=== PATIENT | female | born 1955 | race Hispanic/Latino ===

== ENCOUNTER 2016-10-14 20:43 | Observation (INO) | payer OTHER ==
[~2016-10-14] VITALS: Ht 154.9 cm; Wt 59.4 kg
--- NOTE | 2016-10-14 20:53 | ED UPPER/LOWER EXTREMITY COMPL ---
History of Present Illness General Chief Complaint: Foot or Ankle Injury Stated Complaint: BIBA FOR L ANKLE INJURY Source: patient Exam Limitations: no limitations Vital Signs & Intake/Output Vital Signs & Intake/Output Vital Signs Date Time Temp Pulse Resp B/P B/P Pulse O2 O2 Flow FiO2 Mean Ox Delivery Rate 10/15 0236 98.6 79 20 140/84 95 10/15 0139 76 18 148/83 99 Room Air 10/15 0001 165/89 10/15 0000 97.5 80 18 165/89 98 Room Air 10/14 2240 97.2 85 18 144/76 99 Room Air 10/14 2131 Room Air 10/14 2054 97.4 83 18 171/86 98 Room Air ED Intake and Output 10/15 0000 10/14 1200 Intake Total Output Total 200 Balance -200 Output, Urine 200 Patient 131 lb Weight Weight Reported by Patient Measurement Method Allergies Coded Allergies: MDX - Amoxicillin (From AUGMENTIN) (RASH 06/30/12) MDX - Clavulanic Acid (From AUGMENTIN) (RASH 06/30/12) MDX - Lisinopril (LISINOPRIL) (UNKNOWN 06/30/12) MDX - PCN (penicillin) (PCN (PENICILLIN)) (RASH 06/30/12) Triage Nurses Notes Reviewed? yes Onset: Abrupt Duration: constant Timing: single episode today Severity: severe Severity Numbers: 10 HPI: Patient is a 61-year-old female with a past medical history of hypertension who presents emergency room in which patient was walking down her steps where she thought she was walking down her final step however she had 2 more steps left and subsequent, he fell forward and which she twisted her left ankle resulting cute onset of sharp stabbing severe localized left ankle pain. Patient denies any preceding episode lightheaded sensation or dizziness. Denies any head strike back pain neck pain hip pain or foot pain or knee pain. Patient is brought in by ambulance in which CARDBOARD SPLINT was placed (RAMIREZ BUSCH) Reconcile Medications Metoprolol Tartrate 50 MG TABLET 1 TAB PO BID HTN (Reported) (CECILIA CHRISTINE,AMY Renee) Past History Travel History Traveled to [place] past 21 day No Medical History Any Pertinent Medical History? see below for history Cardiovascular: hypertension Surgical History Surgical History: non-contributory Psychosocial History What is your primary language Kinyarwanda Family History Hx Contributory? No (RAMIREZ BUSCH) Review of Systems Review of Systems Constitutional: Reports: no symptoms. EENTM: Reports: no symptoms. Respiratory: Reports: no symptoms. Cardiovascular: Reports: no symptoms. Gastrointestinal/Abdominal: Reports: no symptoms. Genitourinary: Reports: no symptoms. Musculoskeletal: Reports: see HPI, joint pain, joint swelling. Skin: Reports: no symptoms. Neurological/Psychological: Reports: no symptoms. Hematologic/Endocrine: Reports: no symptoms. Immunological: Reports: no symptoms. All Other Systems: Reviewed and Negative (RAMIREZ BUSCH) Physical Exam Physical Exam General Appearance: mild distress Neurologic/Tendon: normal sensation, normal motor functions, normal tendon functions, responds to pain, no evidence tendon injury, no pulse deficit Skin: intact, normal color, warm/dry Comments: HEENT: Atraumatic, extraocular motion intact Neck: Supple, no lymphadenopathy Back: Nontender Respiratory: No respiratory distress Extremities: Left hip nontender normal inspection Left knee normal inspection nontender Left ankle noted gross deformity GENERALIZED point tenderness noted skin intact Left foot nontender pedal pulse +2 capillary refill less than 2 seconds Left lower extremity dermatomes intact Neuro: Alert and oriented x3 Psych: Mood affect normal, normal memory normal judgment. (RAMIREZ BUSCH) Progress Differential Diagnosis: arterial insufficiency, compartment syndrome, contusion, dislocation, DVT, fracture, gout, septic arthritis, sprain, tendon injury Plan of Care: Orders Procedure Date/time Status Nothing by Mouth 10/15 B Active CBC WITHOUT DIFFERENTIAL 10/15 0500 Active BASIC ELECTROLYTES PLUS BUN&CR 10/15 0500 Active Vital Signs 10/15 0242 Complete Teach/Educate 10/15 0242 Active Pain Treatment and Response 10/15 0242 Active Nutritional Intake, Monitor 10/15 0242 Active Isolation 10/15 0242 Active Intake & Output 10/15 0242 Complete Patient Care Conference 10/15 0242 Active Activity/Ambulation 10/15 0242 Complete Lab Add-on Test 10/15 UNK Active Pathway - chart 10/14 2346 Active Patient Data 10/14 2346 Active Code Status 10/14 2346 Active Saline Lock 10/[address] in observation 10/14 2334 Active Misc Message 10/14 2334 Active ED Holding Orders 10/14 2334 Active Vital Signs 10/14 2334 Complete Code Status 10/14 2334 Complete TROPONIN LEVEL 10/14 2306 Active PARTIAL THROMBOPLASTIN TIME 07/14 2247 Complete PROTHROMBIN TIME 10/14 2246 Complete COMPREHENSIVE METABOLIC PANEL 10/14 2246 Active CBC WITHOUT DIFFERENTIAL 10/14 2246 Complete EKG 10/14 2246 Active TYPE & SCREEN (NOT X-MATCH) 10/14 2246 Complete Durable Medical Equipment 10/14 2228 Active Admit to inpatient 10/14 UNK Active VTE Mechanical Prophylaxis 10/14 UNK Active Vital Signs 10/14 UNK Active Intake & Output 10/14 UNK Active Activity/Ambulation 10/14 UNK Active Current Medications Sig/Diana Start time Last Medication Dose Stop Time Status Admin Metoprolol Tartrate 50 MG BID 10/14 2347 AC 10/15 (Lopressor) 0001 Acetaminophen 1,000 MG Q6P PRN 10/14 234 AC (Ofirmev) N/A 1 UNIT (No Carrier) Dextrose/Sodium 1,000 ML .Q10H 10/14 2344 AC 10/15 Chloride 0322 (D5W-1/2 Normal Saline 1000ML) Morphine Sulfate 2 MG Q3P PRN 10/14 2345 AC 10/15 (Morphine) 0254 Ondansetron HCl 4 MG Q6P PRN 10/14 2345 AC (Zofran) Laboratory Tests 10/14/16 2306: Anion Gap 11, Estimated GFR > 60, BUN/Creatinine Ratio 20.0, Glucose 145 H, Calcium 9.2, Total Bilirubin 0.3, AST 21, ALT 32, Alkaline Phosphatase 120, Troponin I Pending, Total Protein 7.2, Albumin 4.4, Globulin 2.8, Albumin/ Globulin Ratio 1.6, PT 11.0, INR 1.05, APTT 32, CBC w Diff NO MAN DIFF REQ, RBC 4.85, MCV 92.3, MCH 30.6, RDW 13.1, MPV 8.5, Gran % 81.4 H, Lymphocytes % 12.5 L, Monocytes % 5.3, Eosinophils % 0.6, Basophils % 0.2, Absolute Granulocytes 10.8 H, Absolute Lymphocytes 1.6, Absolute Monocytes 0.7 H, Absolute Eosinophils 0.1, Absolute Basophils 0, PUBS MCHC 33.2 Patient on initial examination was neurovascularly intact however shows gross deformity and concerns of dislocation. IV was established immediately in which fentanyl 50 g was administered with minimal improvement of symptoms then 50 g IV dose of fentanyl was administered then one attempt of reduction was performed successfully and was post reduction neurovascular was intact. I then placed a WEBRIL THEN sugar tong and posterior lower leg splint using orthopedic GLASS AND ACEWRAP. PRE/POST NEUROVASCULARITY WAS INTACT. Patient then was administered another 50 g of fentanyl Patient tolerated well XRAY PENDING Discussed patient with orthopedic Chalo Rodrigues MD in which the temporary splint currently is in place and patient was resting comfortably at bedside. We discussed patient's disposition and plan in which patient was strongly advised to begin nonweightbearing status using crutches in which patient lives in a private residence with her family especially her son in which at this time patient felt comfortable, safe and stable to manage with the nonweightbearing status in the splint at home in which pain medications will be administered and patient will follow-up with orthopedics on Monday. Patient family members felt comfortable with disposition plan and had no questions. It was noted that using crutches patient was unable to tolerate crutches due to the fall which patient has noted pain to the right ankle and was unsafe for discharge Patient could not tolerate Chalo Rodrigues MD was aware of patient not being able to be safely discharged from the emergency room due to concerns of a right ankle sprain and patient is nonweightbearing on the left lower extremity due to recent fracture. X-ray was ordered to the right ankle Patient is nothing by mouth Patient will have surgical intervention performed by Chalo Rodrigues MD tomorrow first thing a.m. Discussed with surgical PA that Dr. RODRIGUES WILL ACCEPT patient under his service (CAREY CASTILLO,RAMIREZ) Diagnostic Imaging: Viewed by Me: Radiology Read. Initial ED EKG: PENDING Comments: PATIENT: ANTONIETA PERDOMO PRESENT AGE: 61 PATIENT ACCOUNT NO: [id number] : 54 LOCATION: [facility] ORDERING PHYSICIAN: RAMIREZ CASTILLO SERVICE DATE: 10/14/16 EXAM TYPE: RAD - XRY-ANKLE 3 OR MORE VIEWS L; [id number], LEFT EXAMINATION: XR TIBIA AND FIBULA, LEFT Left ankle CLINICAL INFORMATION: Dislocated ankle COMPARISON: None TECHNIQUE: AP and lateral views of the left tibia and fibula were obtained. 3 views of the left ankle FINDINGS: Tibia/fibula: There is a partially opaque fiberglass splint extending to the level of the knee which obscures detail. There is a slightly comminuted distal fibular fracture. There is a transversely oriented fracture of the medial malleolus at the level of the plafond. The distal fibular fracture has an oblique orientation extending to the junction with the lateral aspect of the talar dome Left ankle: Partially opaque fiberglass splint immobilizes the ankle with minimal plantar flexion. There is moderate dorsal displacement of the distal fibular fracture fragment with at least 2 small comminuted fragments. There is slight distraction and mild rotation of the medial malleolar fracture fragment. Plantar calcaneal spur There is apparent widening of the ventral aspect of the tibiotalar joint IMPRESSION: Splint immobilizes the displaced medial malleolar and distal fibular fracture. Persistent displacement. DICTATED BY: KARRI HILLIARD MD DATE/TIME DICTATED:10/14/162245 PATIENT: ANTONIETA PERDOMO PRESENT AGE: 61 PATIENT ACCOUNT NO: [id number] : 54 LOCATION: [facility] ORDERING PHYSICIAN: RAMIREZ CASTILLO SERVICE DATE: 10/14/16 EXAM TYPE: RAD - XRY-ANKLE 3 OR MORE VIEWS R EXAMINATION: XR ANKLE, RIGHT CLINICAL INFORMATION: Pain status post fall. COMPARISON: None TECHNIQUE: AP, lateral, and mortise views of the right ankle. FINDINGS: Bone mineral density is maintained without evidence of fracture or dislocation. No focal osseous lesions are seen. Joint space is maintained without productive or erosive changes. There is mild soft tissue prominence laterally. IMPRESSION: No fracture or dislocation is seen. DICTATED BY: ÁLVARO ESCAMILLA MD DATE/TIME DICTATED:10/14/162311 RUBBER VULCANIZING MACHINE OPERATOR:BARBARA (CAREY CASTILLO,RAMIREZ) Departure Departure Disposition: STILL A PATIENT Condition: Stable Clinical Impression Primary Impression: Fracture of medial malleolus of left tibia Secondary Impressions: Dislocation of ankle joint, Fall, Fracture of distal end of fibula, Right ankle sprain Referrals: CAROL CHRISTINE,CHALO LOPEZ MDHUTTIG Departure Forms: Customer Survey General Discharge Information Admission Note Spoke With: CHALO RODRIGUES MD Documentation of Exam: Documentation of any treatments & extenuating circumstances including Concerns Regarding Discharge (functional status, medication knowledge or non-compliance, living conditions, etc.) that warrant an admission rather than observation: Discussed admission with Dr. RODRIGUES who will accept patient under his service and was patient will require surgical intervention and was patient is unsafe to be discharged home patient also will require short-term rehabilitation after (CAREY CASTILLO,RAMIREZ) PA/HUB CUTTER APPRENTICE Co-Sign Statement Statement: ED Attending supervision documentation- [] I saw and evaluated the patient. I have also reviewed all the pertinent lab results and diagnostic results. I agree with the findings and the plan of care as documented in the PA's/HUB CUTTER APPRENTICE's documentation. [x] I have reviewed the ED Record and agree with the PA's/HUB CUTTER APPRENTICE's documentation. [] Additions or exceptions (if any) to the PAs/HUB CUTTER APPRENTICE's note and plan are summarized below: [] (CECILIA CHRISTINE,AMY Renee)
--- NOTE | 2016-10-14 22:53 | RADIOLOGY REPORT ---
EXAMINATION: XR TIBIA AND FIBULA, LEFT Left ankle CLINICAL INFORMATION: Dislocated ankle COMPARISON: None TECHNIQUE: AP and lateral views of the left tibia and fibula were obtained. 3 views of the left ankle FINDINGS: Tibia/fibula: There is a partially opaque fiberglass splint extending to the level of the knee which obscures detail. There is a slightly comminuted distal fibular fracture. There is a transversely oriented fracture of the medial malleolus at the level of the plafond. The distal fibular fracture has an oblique orientation extending to the junction with the lateral aspect of the talar dome Left ankle: Partially opaque fiberglass splint immobilizes the ankle with minimal plantar flexion. There is moderate dorsal displacement of the distal fibular fracture fragment with at least 2 small comminuted fragments. There is slight distraction and mild rotation of the medial malleolar fracture fragment. Plantar calcaneal spur There is apparent widening of the ventral aspect of the tibiotalar joint IMPRESSION: Splint immobilizes the displaced medial malleolar and distal fibular fracture. Persistent displacement.
--- NOTE | 2016-10-14 23:12 | History & Physical Pre-Op ---
General Information and HPI MD Statement: I have seen and personally examined ANTONIETA PERDOMO and documented this H&P. The patient is a 61 year old F who presented with a patient stated chief complaint of [LEFT ANKEL PAIN]. 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 She was walking down the stairs in her home while on her ipad, and tripped down the last 2 stairs. Denies palpitaitons, bhat, cp, sob, dizziness, loc, head injury at time of fall. Also c/o right ankle pain, noted when she stood from her fall and fully weight beared to right foot. No other complaints at this time- no n/v/cp/sob/f/c Allergies/Medications Allergies: Coded Allergies: MDX - Amoxicillin (From AUGMENTIN) (RASH 06/30/12) MDX - Clavulanic Acid (From AUGMENTIN) (RASH 06/30/12) MDX - Lisinopril (LISINOPRIL) (UNKNOWN 06/30/12) MDX - PCN (penicillin) (PCN (PENICILLIN)) (RASH 06/30/12) Past History Medical History Cardiovascular: hypertension Surgical History Pertinent Surgical History: cholecystectomy, left carpal tunnel, l tennis elbow, l thumb procedure Past Family/Social History Psychosocial History Smoking Status: Never Smoked ETOH Use: denies use Illicit Drug Use: denies illicit drug use 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 r ankle ttp, no edema, skin intact. +DP bl. Last 24 Hrs of Labs/Kenji: Laboratory Tests 10/14/16 2306: Anion Gap 11, Estimated GFR > 60, BUN/Creatinine Ratio 20.0, Glucose 145 H, Calcium 9.2, Total Bilirubin 0.3, AST 21, ALT 32, Alkaline Phosphatase 120, Total Protein 7.2, Albumin 4.4, Globulin 2.8, Albumin/Globulin Ratio 1.6, PT 11.0, INR 1.05, APTT 32, CBC w Diff NO MAN DIFF REQ, RBC 4.85, MCV 92.3, MCH 30.6, RDW 13.1, MPV 8.5, Gran % 81.4 H, Lymphocytes % 12.5 L, Monocytes % 5.3, Eosinophils % 0.6, Basophils % 0.2, Absolute Granulocytes 10.8 H, Absolute Lymphocytes 1.6, Absolute Monocytes 0.7 H, Absolute Eosinophils 0.1, Absolute Basophils 0, PUBS MCHC 33.2 Diagnostic Data Other Results SERVICE DATE: 10/14/16 EXAM TYPE: RAD - XRY-ANKLE 3 OR MORE VIEWS L; [id number], LEFT EXAMINATION: XR TIBIA AND FIBULA, LEFT Left ankle CLINICAL INFORMATION: Dislocated ankle COMPARISON: None TECHNIQUE: AP and lateral views of the left tibia and fibula were obtained. 3 views of the left ankle FINDINGS: Tibia/fibula: There is a partially opaque fiberglass splint extending to the level of the knee which obscures detail. There is a slightly comminuted distal fibular fracture. There is a transversely oriented fracture of the medial malleolus at the level of the plafond. The distal fibular fracture has an oblique orientation extending to the junction with the lateral aspect of the talar dome Left ankle: Partially opaque fiberglass splint immobilizes the ankle with minimal plantar flexion. There is moderate dorsal displacement of the distal fibular fracture fragment with at least 2 small comminuted fragments. There is slight distraction and mild rotation of the medial malleolar fracture fragment. Plantar calcaneal spur There is apparent widening of the ventral aspect of the tibiotalar joint IMPRESSION: Splint immobilizes the displaced medial malleolar and distal fibular fracture. Persistent displacement. Assessment/Plan Assessment/Plan: A: 61yoF sp mechanical fall w L bimalleolar fx, R ankle sprain, with pain and inability to ambulate. P: DW Dr. Rodrigues, will admit to his service and take to OR tomorrow am for ORIF. NPO p mn, IVF, prn pain meds, home meds. Full code. Pt agrees with plan. As Ranked By This Provider Problem List: 1. Fracture of medial malleolus of left tibia 2. Right ankle sprain 3. Fall
[2016-10-14 23:15] LABS: ABSOLUTE BASOPHIL COUNT 0 /CUMM (0.0-0.2); ABSOLUTE EOSINOPHIL COUNT 0.1 /CUMM (0.0-0.7); ABSOLUTE GRANULOCYTE CT 10.8 /CUMM (1.4-6.5); ABSOLUTE LYMPH COUNT 1.6 /CUMM (1.2-3.4); ABSOLUTE MONOCYTE COUNT 0.7 /CUMM (0.10-0.60); BASOPHIL % 0.2 % (0.0-2.0); EOSINOPHIL % 0.6 % (0-5); GRANULOCYTE % 81.4 % (42.2-75.2); HEMATOCRIT 44.8 % (37-47); MEAN CORPUSCULAR HGB 30.6 PG (27.0-31.0); MEAN CORPUSCULAR HGB CONC 33.2 G/DL (33.0-37.0); MEAN CORPUSCULAR VOLUME 92.3 FL (81.0-99.0); MEAN PLATELET VOLUME 8.5 FL (7.4-10.4); PLATELET COUNT 289 /CUMM (130-400); RBC DISTRIBUTION WIDTH 13.1 % (11.5-14.5); RED BLOOD CELL CT 4.85 /CUMM (4.20-5.40); WHITE BLOOD CELL COUNT 13.2 /CUMM (4.8-10.8)
--- NOTE | 2016-10-14 23:16 | RADIOLOGY REPORT ---
EXAMINATION: XR ANKLE, RIGHT CLINICAL INFORMATION: Pain status post fall. COMPARISON: None TECHNIQUE: AP, lateral, and mortise views of the right ankle. FINDINGS: Bone mineral density is maintained without evidence of fracture or dislocation. No focal osseous lesions are seen. Joint space is maintained without productive or erosive changes. There is mild soft tissue prominence laterally. IMPRESSION: No fracture or dislocation is seen.
[2016-10-14 23:27] LABS: PTT 32 SEC (25-37)
[2016-10-14] MEDS ORDERED: METOPROLOL TART50 M1 PO (23:49)
--- NOTE | 2016-10-15 | Admission Core Measures ---
Admission Lab Results I reviewed the following labs: Laboratory Tests 10/14 2306 Chemistry Sodium (137 - 145 mmol/L) 139 Potassium (3.5 - 5.1 mmol/L) 4.2 Chloride (98 - 107 mmol/L) 101 Carbon Dioxide (22 - 30 mmol/L) 27 Anion Gap (5 - 16) 11 BUN (7 - 17 mg/dL) 14 Creatinine (0.5 - 1.0 mg/dL) 0.7 Estimated GFR (>60 ml/min) > 60 BUN/Creatinine Ratio (7 - 25 %) 20.0 Glucose (65 - 99 mg/dL) 145 H Calcium (8.4 - 10.2 mg/dL) 9.2 Total Bilirubin (0.2 - 1.3 mg/dL) 0.3 AST (14 - 36 U/L) 21 ALT (9 - 52 U/L) 32 Alkaline Phosphatase (<127 U/L) 120 Total Protein (6.3 - 8.2 g/dL) 7.2 Albumin (3.5 - 5.0 g/dL) 4.4 Globulin (1.9 - 4.2 gm/dL) 2.8 Albumin/Globulin Ratio (1.1 - 2.2 %) 1.6 Coagulation PT (9.4 - 12.5 SEC) 11.0 INR (0.90 - 1.19) 1.05 APTT (25 - 37 SEC) 32 Hematology CBC w Diff NO MAN DIFF REQ WBC (4.8 - 10.8 /CUMM) 13.2 H RBC (4.20 - 5.40 /CUMM) 4.85 Hgb (12.0 - 16.0 G/DL) 14.9 Hct (37 - 47 %) 44.8 MCV (81.0 - 99.0 FL) 92.3 MCH (27.0 - 31.0 PG) 30.6 RDW (11.5 - 14.5 %) 13.1 Plt Count (130 - 400 /CUMM) 289 MPV (7.4 - 10.4 FL) 8.5 Gran % (42.2 - 75.2 %) 81.4 H Lymphocytes % (20.5 - 51.1 %) 12.5 L Monocytes % (1.7 - 9.3 %) 5.3 Eosinophils % (0 - 5 %) 0.6 Basophils % (0.0 - 2.0 %) 0.2 Absolute Granulocytes (1.4 - 6.5 /CUMM) 10.8 H Absolute Lymphocytes (1.2 - 3.4 /CUMM) 1.6 Absolute Monocytes (0.10 - 0.60 /CUMM) 0.7 H Absolute Eosinophils (0.0 - 0.7 /CUMM) 0.1 Absolute Basophils (0.0 - 0.2 /CUMM) 0 PUBS MCHC (33.0 - 37.0 G/DL) 33.2 Admission Meds I reviewed the following Meds: Current Medications Sig/Diana Start time Last Medication Dose Stop Time Status Admin Acetaminophen 1,000 MG Q6P PRN 10/14 2345 UNVr (Ofirmev) N/A 1 UNIT (No Carrier) Dextrose/Sodium 1,000 ML .Q10H 10/14 2345 AC Chloride (D5W-1/2 Normal Saline 1000ML) Metoprolol Tartrate 50 MG BID 10/14 2346 UNVr (Lopressor) Morphine Sulfate 2 MG Q3 PRN 10/14 2344 UNVr (Morphine) Ondansetron HCl 4 MG Q6P PRN 10/14 2345 UNVr (Zofran) Acute Coronary Syndrome Inclusion Criteria ACS Diagnosis No Inpatient Core Measures LDL Reminder: If No, please order W/I first 24hr of stay Congestive Heart Failure Inclusion Criteria CHF Diagnosis No Cerebrovascular accident Inclusion Criteria CVA/TIA Diagnosis No Inpatient Core Measures Bedside Swallow Eval Reminder: If BSE failed, place ST order Antithrombotic Reminder: Order Antithrombotic Medication by end of day 2 Antithrombotic Reminder: Document Reason Antithrombotic Not ordered by end of day 2 AFIB/Flutter Reminder: If Present, add to problem list AFIB/Flutter Reminder: Order Anticoag Medication for pts with AFIB/Flutter Atherosclerosis Reminder: If Present, add to problem list LDL Reminder: If No, please order W/I first 24hr of stay PT Order Reminder: If No, please order Venous thromboembolism Inpatient Core Measures VTE Risk Factors: Surgery [facility] V[facility] prophylaxis d/t No contraindications No VTE Pharm Prophylaxis d/t No contraindications Inclusion Criteria - Per Current guidelines, there needs to be overlap - treatment for the first 5 days of Warfarin therapy. - Parenteral Anticoagulation (IV or SC) needs to be - given along with Warfarin therapy. VTE Diagnosis No VTE Type NONE VTE Confirmed by (Test) NONE Problem List As ranked by this Provider includes Assessment & Plan 1. Fracture of medial malleolus of left tibia 2. Right ankle sprain 3. Fall HOME MEDS Home Med List Metoprolol Tartrate 50 MG TABLET 1 TAB PO BID HTN (Reported)
[2016-10-15 02:36] VITALS: BP 140/84
--- NOTE | 2016-10-15 03:00 | Cons- Medical ---
BRAXTON CHRISTINE,AISLINN 10/15/16 0246: General Information and HPI Consulting Request Date of Consult: 10/15/16 Requested By: CAROL CHRISTINE,CHALO Dodd Reason for Consult: Pre-op clearance Source of Information: patient, family Exam Limitations: no limitations History of Present Illness: This is a 61-year-old female w/ past medical history significant for hypertension, headache-currently being worked up for trigeminal neuralgia who comes in for chief complaint of ankle pain. Patient is status post mechanical fall, she was walking down the stairs, using her ipad, in her home and tripped on the last 2 stairs. Denies any head trauma, shortness of breath, dizziness, chest pain, palpitations, or loss of consciousness. Patient endorses both right and left ankle pain but she states the left is greater than the right. Denies any smoking or drinking or IV drug abuse. Surgical history significant for left-sided carpal tunnel surgery left side joint replacement of the thumb, tennis elbow of left arm and cholecystectomy. 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 Only medication is metoprolol 25 mg by mouth twice a day. Allergies/Medications Allergies: Coded Allergies: MDX - Amoxicillin (From AUGMENTIN) (RASH 06/30/12) MDX - Clavulanic Acid (From AUGMENTIN) (RASH 06/30/12) MDX - Lisinopril (LISINOPRIL) (UNKNOWN 06/30/12) MDX - PCN (penicillin) (PCN (PENICILLIN)) (RASH 06/30/12) Home Med List: Metoprolol Tartrate 50 MG TABLET 1 TAB PO BID HTN (Reported) Current Medications: Current Medications Sig/Diana Start time Last Medication Dose Route Stop Time Status Admin Acetaminophen 1,000 MG Q6P PRN 10/14 2345 AC N/A 1 UNIT IV Dextrose/Sodium 1,000 ML .Q10H 10/14 2345 AC 10/15 Chloride IV 0001 Fentanyl Citrate 0 .STK-MED ONE 10/14 2149 DC .ROUTE Fentanyl Citrate 100 MCG ONCE ONE 10/14 2144 DC 10/14 IV 10/14 Fentanyl Citrate 0 .STK-MED ONE 10/14 2129 DC .ROUTE Fentanyl Citrate 0 .STK-MED ONE 10/14 2121 DC .ROUTE Fentanyl Citrate 50 MCG ONCE ONE 10/14 2114 DC 10/14 IV 10/14 Metoprolol Tartrate 0 .STK-MED ONE 10/15 0002 DC PO Metoprolol Tartrate 0 .STK-MED ONE 10/15 0001 DC PO Metoprolol Tartrate 50 MG BID 10/14 2347 AC 10/15 PO 0001 Morphine Sulfate 2 MG Q3P PRN 10/14 2345 AC IV Ondansetron HCl 4 MG Q6P PRN 10/14 2345 AC IV Oxycodone/ 0 .STK-MED ONE 10/14 2234 DC Acetaminophen PO Oxycodone/ 1 TAB ONCE ONE 10/14 2229 DC 10/14 Acetaminophen PO 10/14 2230 2240 Review of Systems Review of Systems Constitutional: Denies: chills, diaphoresis, fever, malaise, weakness. EENTM: Denies: blurred vision. Cardiovascular: Denies: chest pain, palpitations. Respiratory: Denies: cough, short of breath. GI: Denies: constipation, diarrhea, nausea, vomiting. Genitourinary: Denies: hematuria, pain, urgency. Musculoskeletal: Reports: joint pain, joint swelling, muscle pain, muscle stiffness. Skin: Reports: no symptoms. Past History Travel History Traveled to [place] past 21 day No Medical History Cardiovascular: hypertension Surgical History Surgical History: cholecystectomy, left carpal tunnel, l tennis elbow, l thumb procedure Psychosocial History Smoking Status: Never Smoked ETOH Use: denies use Illicit Drug Use: denies illicit drug use Functional Ability ADLs Independent: dressing, eating, toileting, bathing. Ambulation: independent IADLs Independent: shopping, housework, finances, food prep, telephone, transportation , medication admin. 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) Exam & Diagnostic Data Last 24 Hrs of Vital Signs/I&O Vital Signs Date Time Temp Pulse Resp B/P B/P Pulse O2 O2 Flow FiO2 Mean Ox Delivery Rate 10/15 0236 98.6 79 20 140/84 95 10/15 0139 76 18 148/83 99 Room Air 10/15 0001 165/89 10/15 0000 97.5 80 18 165/89 98 Room Air 10/14 2240 97.2 85 18 144/76 99 Room Air 10/14 2130 Room Air 10/14 2053 97.4 83 18 171/86 98 Room Air Intake & Output 10/15 0800 10/15 0000 10/14 1600 Intake Total Output Total 200 Balance -200 Output, Urine 200 Patient 59.421 kg 59.421 kg Weight Weight Reported by Patient Measurement Method Physical Exam General Appearance: well developed/nourished, no apparent distress, alert, awake Head: atraumatic, normal appearance Eyes: Bilateral: normal appearance, PERRL, EOMI. Ears, Nose, Throat: normal pharynx, normal ENT inspection Neck: normal inspection, supple Respiratory: normal breath sounds Cardiovascular: regular rate/rhythm Gastrointestinal: soft, non-tender Extremities: injury present, limited range of motion, swelling Cranial Nerves: normal hearing, normal speech, PERRL Last 24 Hrs of Labs/Kenji: Laboratory Tests 10/14/16 2306: Anion Gap 11, Estimated GFR > 60, BUN/Creatinine Ratio 20.0, Glucose 145 H, Calcium 9.2, Total Bilirubin 0.3, AST 21, ALT 32, Alkaline Phosphatase 120, Total Protein 7.2, Albumin 4.4, Globulin 2.8, Albumin/Globulin Ratio 1.6, PT 11.0, INR 1.05, APTT 32, CBC w Diff NO MAN DIFF REQ, RBC 4.85, MCV 92.3, MCH 30.6, RDW 13.1, MPV 8.5, Gran % 81.4 H, Lymphocytes % 12.5 L, Monocytes % 5.3, Eosinophils % 0.6, Basophils % 0.2, Absolute Granulocytes 10.8 H, Absolute Lymphocytes 1.6, Absolute Monocytes 0.7 H, Absolute Eosinophils 0.1, Absolute Basophils 0, PUBS MCHC 33.2 Assessment/Plan Assessment/Plan This is a 59-year-old female with past medical history significant for hypertension and headaches who comes in for chief complaint of left lower extremity pain status post mechanical fall after accidental tripping and falling down last 2 stairs at home. ED workup shows bilateral fracture and a right ankle sprain. Plan is for patient to go to OR in a.m. for ORIF. Medicine team has been consulted for preoperative clearance. In ED patient underwent successful reduction of the lower extremity and post reduction was neurovascularly intact. Subsequently she was placed in a leg splint using orthopedic glass and Roland wrap. Initially, plan was to discharge patient on crutches and follow-up with ortho surgeon on Monday. However given her fall and subsequent weakness on the right ankle,pt was unable to tolerate crutches and was unsafe discharge for home ED workup shows:Vitals 98.6, 79, 20, 140/84, 95.CBC shows white count 13.2, hemoglobin ABC shows white count 13.2, hemoglobin 14.9, hematocrit 44.8, platelet 289. INR 1.05 L. Ankle Xray Impression: Splint immobilizes the displaced medial malleolar and distal fibular fracture. Persistent displacement. Plan Preoperative clearance:She is medically stable, her vital signs are normal and her EKG shows no acute changes. The revised cardiac risk index for preoperative risk for this patient is 0.6 placing her at class I risk and 0.4% risk of major cardiac event. Patient is at an acceptable risk to undergo surgery. Her EKG looks good as she is in NSR without any acute ST, Twv abnormalities noted. * Follow up add on troponin Leukocytosis: WBC at 13.2; most likely reactive. * Con't monitor HTN: Pt has BP 140/84 and takes Metoprolol 25mg po BID * Con't Metoprolol with holding paramenters for hypotension FC CHEM DVT PPX NPO Problem List: 1. Fracture of medial malleolus of left tibia 2. Dislocation of ankle joint 3. Fall Consult Acknowledgment - Thank you for your consult request. CHERELLE CHRISTINE, [facility] 10/15/16 030: Assessment/Plan Consult Acknowledgment - Thank you for your consult request. Attending MD Review Statement Attending Statement Attending MD Statement: examined this patient, discuss w/resident/PA/TUNNELING MACHINE OPERATOR, agreed w/resident/PA/TUNNELING MACHINE OPERATOR, discussed with family Attending Assessment/Plan: 61 yo F with h/o HTN, migraine headaches (currently being evaluated for trigeminal neuralgia), is admitted for repair (ORIF) of left bimalleolar fracture s/p mechanical fall under Dr. Rodrigues's service. She has also sustained a right ankle sprain. Medicine is being consulted for pre-operative clearance and management of hypertension. She denies chest pain, dyspnea, palpitations or lightheadedness. Patient denies h/o MA, CHF, stroke or diabetes. She reports undergoing a treadmill stress test (20 yrs ago) and that was negative. She is not sure why it was done though. VSS. Labs s/o mild leukocytosis (WBC 13.2), glucose (145), troponin pending. EKG : Sinus rhythm, non specific changes (no old EKG to compare). Per RCRI, she has no risk factors, placing her at low risk (~ 0.4 - 0.5%) for perioperative cardiac event. She can be taken up for surgery in AM. We wyatt continue with metoprolol for hypertension. Check HbA1c, given elevated random glucose. Her leukocytosis is likely reactive, will recheck CBC in AM. Please provide incentive spirometry post operatively. Pain management and PT eval per primary team. Thank you for the consult. We will continue to follow.
[2016-10-15 05:20] LABS: ABSOLUTE BASOPHIL COUNT 0 /CUMM (0.0-0.2); ABSOLUTE EOSINOPHIL COUNT 0.1 /CUMM (0.0-0.7); ABSOLUTE GRANULOCYTE CT 8.6 /CUMM (1.4-6.5); ABSOLUTE LYMPH COUNT 1.8 /CUMM (1.2-3.4); ABSOLUTE MONOCYTE COUNT 0.8 /CUMM (0.10-0.60); BASOPHIL % 0.3 % (0.0-2.0); EOSINOPHIL % 0.6 % (0-5); GRANULOCYTE % 75.6 % (42.2-75.2); HEMATOCRIT 42.8 % (37-47); MEAN CORPUSCULAR HGB 30.7 PG (27.0-31.0); MEAN CORPUSCULAR HGB CONC 33.1 G/DL (33.0-37.0); MEAN CORPUSCULAR VOLUME 92.7 FL (81.0-99.0); MEAN PLATELET VOLUME 8.7 FL (7.4-10.4); PLATELET COUNT 271 /CUMM (130-400); RBC DISTRIBUTION WIDTH 13.2 % (11.5-14.5); RED BLOOD CELL CT 4.62 /CUMM (4.20-5.40); WHITE BLOOD CELL COUNT 11.4 /CUMM (4.8-10.8)
[2016-10-15 06:13] VITALS: BP 138/80
--- NOTE | 2016-10-15 12:56 | RADIOLOGY REPORT ---
EXAMINATION: FL INTRAOPERATIVE GUIDANCE ANKLE, LEFT CLINICAL INFORMATION: Left ankle pinning. COMPARISON: 10/14/2016 TECHNIQUE: Fluoroscopic time was utilized in the OR for Dr. Rodrigues. Fluoroscopic images were obtained in AP, oblique and lateral projections. FINDINGS: Initial images demonstrate a trimalleolar fracture with posterior subluxation of the talus. Subsequent images demonstrate placement of a buttress plate and screws at the distal fibula followed by progressive placement of 2 partially threaded screws through the medial malleolus. Alignment is improved from prior. Detail is limited on the views obtained. FLUOROSCOPY TIME: 78.5 seconds of fluoroscopic time was utilized for the entirety of this examination. NUMBER OF IMAGES: 79 IMPRESSION: Intraoperative guidance as described above. Recommend correlation with the clinical procedure. Followup radiographs postoperatively recommended.
--- NOTE | 2016-10-15 13:01 | Operative Report ---
Operative/Inv Procedure Report Surgery Date: 10/15/16
[2016-10-15 13:20] VITALS: BP 110/70
--- NOTE | 2016-10-15 18:58 | PN- Orthopedic ---
Subjective Subjective: Postop check Pt has no major complaints. Tolerating some po. Voided. No BM. Pain is reasonably controlled. R ankle pain (sprained side) with reported improvement. Objective Vital Signs and I&Os Vital Signs Date Time Temp Pulse Resp B/P B/P Pulse O2 O2 Flow FiO2 Mean Ox Delivery Rate 10/16 0639 98.7 80 20 124/80 97 10/15 2253 86 120/60 10/15 2205 98.9 110 18 120/60 93 Room Air 10/15 1320 98.6 92 20 110/70 94 Room Air Intake & Output 10/16 0800 10/16 0000 10/15 1600 10/15 0800 10/15 0000 10/14 1600 Intake Total 800 400 200 500 Output Total 1200 4349 853 4256 200 Balance -400 -1400 -550 -550 -200 Intake, IV 800 100 500 Intake, Oral 400 100 0 Number 0 0 Bowel Movements Output, Urine 1200 2741 689 4915 200 Patient 131 lb 131 lb Weight Weight Reported by Patient Measurement Method Physical Exam: Gen: Pt is awake and alert. NAD. Cardiac: regular Pulm: CTA bilaterally Ext: LLE dressing/splint clean and intact. Toes are warm. Sensation is intact. Good capillary refill. RLE swelling almost completely resolved. Strength of DF, PF, Internal/external rotation are 4/5. Mild tenderness on the lateral malleolus and minor pain with eversion. Assessment/Plan Assessment/Plan Pt is a 61 yo F who is now POD #0 s/p ORIF of L ankle fracture, also sustained R ankle sprain at the time of the injury. She was admitted due to safety concerns being unable to bear weight on either foot upon admission. Plan: -Advance diet as tolerated. IVF overnight. Heplock when tolerating po. -Pain control with percocet and valium for spasms. -24 hours of prophylactic antibiotics. -Plan for PT consult in AM for dc recommendations. Anticipate home since R ankle symptoms have improved somewhat. Air cast available in pt's room to assist with immobilization. -Leave surgical dressing in place on L side. -SC heparin can start in AM. -B emeka resumed. Core Measures/Miscellaneous Venous Thromboembolism VTE Risk Factors: Acute medical illness, Age > 40, Surgery, Trauma major or lower ext VTE Contraindications: No Contraindications VTE Diagnosis: No VTE Type: NONE VTE Confirmed by (Test): NONE Beta Emeka Is Beta Emeka a Home Med? Yes If Yes, Was This Ordered Today? Yes Antibiotics Is Patient on Antibiotics? Yes If Yes: prophylaxis
--- NOTE | 2016-10-15 19:38 | PN- Att Addend ---
Attending Addendum Attending Brief Note Patient seen and examined. Plan of care discussed with the medical team and the patient. Available lab work and radiology test reports were reviewed. Patient is status post surgery as morning. She is currently awake alert and pain is well controlled. Denies any trouble with breathing and she does not appear to be in any distress. Vital Signs Date Time Temp Pulse Resp B/P B/P Pulse O2 O2 Flow FiO2 Mean Ox Delivery Rate 10/15 1320 98.6 92 20 110/70 94 Room Air 10/15 0613 98.2 77 20 138/80 95 10/15 0236 98.6 79 20 140/84 95 10/15 0139 76 18 148/83 99 Room Air 10/15 0001 165/89 10/15 0000 97.5 80 18 165/89 98 Room Air 10/14 2240 97.2 85 18 144/76 99 Room Air 10/14 2131 Room Air 10/14 2054 97.4 83 18 171/86 98 Room Air Intake & Output 10/15 1600 10/15 0800 10/15 0000 Intake Total 200 500 Output Total 750 1050 200 Balance -550 -550 -200 Intake, IV 100 500 Intake, Oral 100 0 Number 0 0 Bowel Movements Output, Urine 750 1050 200 Patient 131 lb 131 lb Weight Weight Reported by Patient Measurement Method Exam: General: Patient awake alert oriented without any distress CVS: S1 plus S2 without any murmur or gallops Chest: Few scattered crepitation without any wheeze. There is no respiratory distress. Abdomen: Soft nontender, bowel sound present, no guarding or rebound INBOUND TELEMARKETER: Awake alert oriented without any focal neuro deficit and follows command appropriately Extremities: No edema; no clubbing or cyanosis noted; left foot is covered with a heavy dressing Laboratory Tests 10/15 10/14 0445 2306 Chemistry Sodium (137 - 145 mmol/L) 138 139 Potassium (3.5 - 5.1 mmol/L) 4.3 4.2 Chloride (98 - 107 mmol/L) 102 101 Carbon Dioxide (22 - 30 mmol/L) 28 27 Anion Gap (5 - 16) 9 11 BUN (7 - 17 mg/dL) 11 14 Creatinine (0.5 - 1.0 mg/dL) 0.7 0.7 Estimated GFR (>60 ml/min) > 60 > 60 BUN/Creatinine Ratio (7 - 25 %) 15.7 20.0 Glucose (65 - 99 mg/dL) 145 H Hemoglobin A1c (4.2 - 5.8 %) Pending Calcium (8.4 - 10.2 mg/dL) 9.2 Total Bilirubin (0.2 - 1.3 mg/dL) 0.3 AST (14 - 36 U/L) 21 ALT (9 - 52 U/L) 32 Alkaline Phosphatase (<127 U/L) 120 Troponin I (< 0.11 ng/ml) 0.02 Total Protein (6.3 - 8.2 g/dL) 7.2 Albumin (3.5 - 5.0 g/dL) 4.4 Globulin (1.9 - 4.2 gm/dL) 2.8 Albumin/Globulin Ratio (1.1 - 2.2 %) 1.6 Coagulation PT (9.4 - 12.5 SEC) 11.0 INR (0.90 - 1.19) 1.05 APTT (25 - 37 SEC) 32 Hematology CBC w Diff NO MAN DIFF REQ NO MAN DIFF REQ WBC (4.8 - 10.8 /CUMM) 11.4 H 13.2 H RBC (4.20 - 5.40 /CUMM) 4.62 4.85 Hgb (12.0 - 16.0 G/DL) 14.2 14.9 Hct (37 - 47 %) 42.8 44.8 MCV (81.0 - 99.0 FL) 92.7 92.3 MCH (27.0 - 31.0 PG) 30.7 30.6 RDW (11.5 - 14.5 %) 13.2 13.1 Plt Count (130 - 400 /CUMM) 271 289 MPV (7.4 - 10.4 FL) 8.7 8.5 Gran % (42.2 - 75.2 %) 75.6 H 81.4 H Lymphocytes % (20.5 - 51.1 %) 16.1 L 12.5 L Monocytes % (1.7 - 9.3 %) 7.4 5.3 Eosinophils % (0 - 5 %) 0.6 0.6 Basophils % (0.0 - 2.0 %) 0.3 0.2 Absolute Granulocytes (1.4 - 6.5 /CUMM) 8.6 H 10.8 H Absolute Lymphocytes (1.2 - 3.4 /CUMM) 1.8 1.6 Absolute Monocytes (0.10 - 0.60 /CUMM) 0.8 H 0.7 H Absolute Eosinophils (0.0 - 0.7 /CUMM) 0.1 0.1 Absolute Basophils (0.0 - 0.2 /CUMM) 0 0 PUBS MCHC (33.0 - 37.0 G/DL) 33.1 33.2 Left tibia-fibula x-rays and left ankle x-rays Splint immobilizes the displaced medial malleolar and distal fibular fracture. Persistent displacement. Assessment * Left bimalleolar fracture status post ORIF * History of chronic migraines * History of hypertension currently well controlled * Elevated WBC count of unclear etiology Plan * Continue current dose of metoprolol * Continue current pain medications * DVT prophylaxis
[2016-10-15 22:05] VITALS: BP 120/60
[2016-10-16 06:39] VITALS: BP 124/80
--- NOTE | 2016-10-16 07:50 | PN- Orthopedic ---
Subjective Subjective: POD #1 s/p L ankle ORIF. Pt is doing well today. Pain is controlled. She is tolerating a regular diet and voiding in the bed louise without difficulty. Continues to report improvement in R ankle pain as well, almost completely resolved while resting and not weight bearing. No BM as of yet. Otherwise denies BURNS, dizziness, CP, shortness of breath. Objective Vital Signs and I&Os Vital Signs Date Time Temp Pulse Resp B/P B/P Pulse O2 O2 Flow FiO2 Mean Ox Delivery Rate 10/16 0639 98.7 80 20 124/80 97 / 2253 86 120/60 10/15 2205 98.9 110 18 120/60 93 Room Air 10/15 1320 98.6 92 20 110/70 94 Room Air Intake & Output 10/16 0800 10/16 0000 10/15 1600 10/15 0800 10/15 0000 10/14 1600 Intake Total 800 400 200 500 Output Total 1200 3946 699 5547 200 Balance -400 -1400 -550 -550 -200 Intake, IV 800 100 500 Intake, Oral 400 100 0 Number 0 0 Bowel Movements Output, Urine 1200 2812 381 2171 200 Patient 131 lb 131 lb Weight Weight Reported by Patient Measurement Method Physical Exam: Gen: Pt is awake and alert. NAD. Cardiac: regular Pulm: CTA bilaterally Ext: LLE dressing/splint clean and intact. Toes are cool, but ice pack is in place currently. Sensation is intact. Good capillary refill. RLE swelling resolved. Strength of DF, PF, Internal/external rotation are 4/5. No tenderness appreciated of R ankle this morning. Assessment/Plan Assessment/Plan Pt is a 61 yo F who is now POD #1 s/p ORIF of L ankle fracture, also sustained R ankle sprain at the time of the injury. She was admitted due to safety concerns being unable to bear weight on either foot upon admission. Plan: -Continue regular diet. Heplock IVF. -Pain control with percocet and valium for spasms. -24 hours of prophylactic antibiotics complete. -Plan for PT consult this AM for dc recommendations. Anticipate home since R ankle symptoms have resolved at rest. Air cast available in pt's room to assist with avoidance of rotation. -Leave surgical dressing in place on L side. -SC heparin can start now. -B emeka resumed. -F/u h/h. Core Measures/Miscellaneous Venous Thromboembolism VTE Risk Factors: Acute medical illness, Age > 40, Surgery, Trauma major or lower ext VTE Contraindications: No Contraindications VTE Diagnosis: No VTE Type: NONE VTE Confirmed by (Test): NONE Beta Emeka Is Beta Emeka a Home Med? Yes If Yes, Was This Ordered Today? Yes Antibiotics Is Patient on Antibiotics? No
[2016-10-16] MEDS ORDERED: COLACE100 M1 PO (07:51)
[2016-10-16] MEDS ORDERED: PERCOCET 5-3251 EACH PO (07:51)
--- NOTE | 2016-10-16 07:58 | Patient Discharge Instructions ---
Discharge Instructions General Discharge Information You were seen/treated for: Left ankle fracture, right ankle sprain You had these procedures: Left ankle ORIF on 10/15/2016 Watch for these problems: Fever greater than 101, drainage through the dressing, numbness or tingling of the lower extremities, chest pain, difficulty breathing. Call Surgeon to remove: SPLINT AND DRESSINGS Do not soak the wound: Yes Daily wet to dry dressings: No No bath, but you may shower: No Other wound care: Keep dressing clean and dry. Leave dressing in place. Sponge bath preferred. If shower as desired, please use a shower bag. Use caution on slippery surfaces. Diet Continue normal diet: Yes Activity Full Activity/No Limits: No Activity Self Limited: Yes Pounds, do NOT lift more than: 5 Activity Limited to: No weight bearing (NWB LEFT, WBAT RIGHT) Other activity limits: No weightbearing on the left side. You may weight-bear as tolerated on the right side. Recommend wearing Aircast for comfort to avoid rotational stress. You should use a rolling walker for ambulation and a crutch for stairs as instructed by PT. Acute Coronary Syndrome Inclusion Criteria At DC or during hospital stay patient has or had the following: ACS DIAGNOSIS No Discharge Core Measures Meds if any: Prescribed or Continued at Discharge Meds if any: NOT Prescribed or Continued at Discharge Congestive Heart Failure Inclusion Criteria At DC or during hospital stay patient has or had the following: CHF DIAGNOSIS No Discharge Core Measures Meds if any: Prescribed or Continued at Discharge Meds if any: NOT Prescribed or Continued at Discharge Cerebrovascular accident Inclusion Criteria At DC or during hospital stay patient has or had the following: CVA/TIA Diagnosis No Discharge Core Measures Meds if any: Prescribed or Continued at Discharge Meds if any: NOT Prescribed or Continued at Discharge Venous thromboembolism Inclusion Criteria VTE Diagnosis No VTE Type NONE VTE Confirmed by (Test) NONE Discharge Core Measures - Per Current guidelines, there needs to be overlap - treatment for the first 5 days of Warfarin therapy. - If discharged on Warfarin prior to 5 days of - overlap therapy, the patient will need to be - assessed for post discharge needs including - *Post discharge parental anticoagulation - *Warfarin and/or parental anticoagulation education - *Follow up date to check INR post discharge At least 5 days overlap therapy as Inpatient No Meds if any: Prescribed or Continued at Discharge Note: Overlap Therapy is Warfarin and Anticoagulant Meds if any: NOT Prescribed or Continued at Discharge
--- NOTE | 2016-10-16 08:04 | Surg Short-stay <48hrs Dis Sum ---
Visit Information Visit Dates Admission Date: 10/14/16 Discharge Date: 10/16/16 Surgical Short Stay DC Summary Admission Diagnosis: Left ankle fracture, right ankle sprain Final Diagnosis: Same Procedure(s): 10/15/2016 left ankle ORIF Summary/Significant Findings: Patient is a 61-year-old female who sustained a left ankle fracture and a right ankle sprain after mechanical fall on 10/14/2016. Since she was unable to bear weight bilaterally at the time of admission, she was admitted for surgical treatment. On 10/15/2016, patient underwent ORIF of the left ankle. She tolerated the procedure well and was transferred to the general medical floor postoperatively in stable condition. Her right ankle symptoms improved while nonweightbearing. She was seen by physical therapy on postop day #1 and cleared for discharge. Condition at Discharge: Stable Discharge Disposition: home or self care Discharge instructions provided to patient/family: Yes Post discharge follow-up plan: Leave all dressings in place. Pt should be nonweightbearing on the left operative side and can weight-bear as tolerated on the right side. Aircast can be worn on the right ankle to limit inversion and eversion while ambulatory. Ambulate with rolling walker and use crutch for stairs. Keep dressings clean and dry. Sponge bath is preferred, but if you decide to shower, please use a shower bag over the left lower extremity dressing. Use caution on slippery surfaces. Follow-up with Jeyson Rodrigues MD in the office within 1 week.
[2016-10-16 08:09] VITALS: BP 126/70
[2016-10-16 08:17] LABS: ABSOLUTE BASOPHIL COUNT 0 /CUMM (0.0-0.2); ABSOLUTE EOSINOPHIL COUNT 0 /CUMM (0.0-0.7); ABSOLUTE GRANULOCYTE CT 13.4 /CUMM (1.4-6.5); ABSOLUTE LYMPH COUNT 1.7 /CUMM (1.2-3.4); ABSOLUTE MONOCYTE COUNT 1.4 /CUMM (0.10-0.60); BASOPHIL % 0.1 % (0.0-2.0); EOSINOPHIL % 0 % (0-5); GRANULOCYTE % 81.3 % (42.2-75.2); HEMATOCRIT 38.8 % (37-47); MEAN CORPUSCULAR HGB 30.9 PG (27.0-31.0); MEAN CORPUSCULAR HGB CONC 33.2 G/DL (33.0-37.0); MEAN CORPUSCULAR VOLUME 93.3 FL (81.0-99.0); MEAN PLATELET VOLUME 9.3 FL (7.4-10.4); PLATELET COUNT 257 /CUMM (130-400); RBC DISTRIBUTION WIDTH 13.1 % (11.5-14.5); RED BLOOD CELL CT 4.16 /CUMM (4.20-5.40); WHITE BLOOD CELL COUNT 16.5 /CUMM (4.8-10.8)
--- NOTE | 2016-10-16 13:05 | PN- Att Addend ---
Attending Addendum Attending Brief Note Patient seen and examined. Plan of care discussed with the medical team and the patient. Available lab work and radiology test reports were reviewed. Patient is status post surgery yesterday. She is currently awake alert and pain is well controlled. Denies any trouble with breathing and she does not appear to be in any distress. Vital Signs Date Time Temp Pulse Resp B/P B/P Pulse O2 O2 Flow FiO2 Mean Ox Delivery Rate 10/16 0809 76 126/70 10/16 0639 98.7 80 20 124/80 97 10/15 2253 86 120/60 10/15 2205 98.9 110 18 120/60 93 Room Air 10/15 1320 98.6 92 20 110/70 94 Room Air Intake & Output 10/16 1600 10/16 0800 10/16 0000 Intake Total 800 400 Output Total 1200 1800 Balance -400 -1400 Intake, IV 800 Intake, Oral 400 Output, Urine 1200 1800 Exam: General: Patient awake alert oriented without any distress CVS: S1 plus S2 without any murmur or gallops Chest: Few scattered crepitation without any wheeze. There is no respiratory distress. Abdomen: Soft nontender, bowel sound present, no guarding or rebound [employer]ID[employer] MANAGER: Awake alert oriented without any focal neuro deficit and follows command appropriately Extremities: No edema; no clubbing or cyanosis noted; left foot is covered with a heavy dressing Laboratory Tests 10/16 0617 Chemistry Sodium (137 - 145 mmol/L) 140 Potassium (3.5 - 5.1 mmol/L) 4.2 Chloride (98 - 107 mmol/L) 107 Carbon Dioxide (22 - 30 mmol/L) 23 Anion Gap (5 - 16) 10 BUN (7 - 17 mg/dL) 11 Creatinine (0.5 - 1.0 mg/dL) 0.6 Estimated GFR (>60 ml/min) > 60 BUN/Creatinine Ratio (7 - 25 %) 18.3 Hematology CBC w Diff NO MAN DIFF REQ WBC (4.8 - 10.8 /CUMM) 16.5 H RBC (4.20 - 5.40 /CUMM) 4.16 L Hgb (12.0 - 16.0 G/DL) 12.9 Hct (37 - 47 %) 38.8 MCV (81.0 - 99.0 FL) 93.3 MCH (27.0 - 31.0 PG) 30.9 RDW (11.5 - 14.5 %) 13.1 Plt Count (130 - 400 /CUMM) 257 MPV (7.4 - 10.4 FL) 9.3 Gran % (42.2 - 75.2 %) 81.3 H Lymphocytes % (20.5 - 51.1 %) 10.0 L Monocytes % (1.7 - 9.3 %) 8.6 Eosinophils % (0 - 5 %) 0 Basophils % (0.0 - 2.0 %) 0.1 Absolute Granulocytes (1.4 - 6.5 /CUMM) 13.4 H Absolute Lymphocytes (1.2 - 3.4 /CUMM) 1.7 Absolute Monocytes (0.10 - 0.60 /CUMM) 1.4 H Absolute Eosinophils (0.0 - 0.7 /CUMM) 0 Absolute Basophils (0.0 - 0.2 /CUMM) 0 PUBS MCHC (33.0 - 37.0 G/DL) 33.2 Assessment * Left bimalleolar fracture status post ORIF * History of chronic migraines * History of hypertension currently well controlled * Elevated WBC count of unclear etiology * Transient tachycardia has resolved Plan * Continue current dose of metoprolol * Continue current pain medications * DVT prophylaxis; consider giving patient aspirin for DVT prophylaxis upon discharge * From The medical standpoint patient can be discharged
== END 2016-10-16 14:46 ==
LOC: ERH 20:43 → ERHI 23:34 → ENRESERV 10-15 01:22 → 2NB 10-15 02:03 → ENTRNSPT 10-15 12:35 → EDTRNSPTSTS 10-15 13:10 → CMPTRNSPT 10-15 14:14 → ENPENDDIS 10-16 12:38 → 2NB 10-16 14:46
PROVIDERS: Physician Assistant; Physician Assistant Surgical; ADMIT Orthopaedic Surgery Orthopaedic Surgery of the Spine
DX: S82.842A Displaced bimalleolar fracture of left lower leg, initial encounter for closed fracture (principal); I10 Essential (primary) hypertension; J45.909 Unspecified asthma, uncomplicated; W10.9XXA Fall (on) (from) unspecified stairs and steps, initial encounter; Y92.009 Unspecified place in unspecified non-institutional (private) residence as the place of occurrence of the external cause
CPT/HCPCS: 36415; 73590-LT; 73600-LT; 73610-LT; 73610-RT; 82436; 93005; 93010; 96372; 96374; 96375; 96376; 97110-GP; 97116-GP; 97161-GP; C1713; G0378; J0131; J0690; J1644; J2405; J3010; J7042